=== PATIENT | female | born 1965 | race Caucasian/White ===

== ENCOUNTER 2019-05-07 06:33 | Emergency (ER) | payer BC ==
[2019-05-07] MEDS ORDERED: Ondansetron PF 4 MG/2 ML Vial ONE (06:57)
[2019-05-07] MEDS ORDERED: Ketorolac Tromethamine 30 MG/ML VIAL ONE ×2 (06:58→07:37)
[2019-05-07 07:07] LABS: Bilirubin Negative (Negative); Blood, Urine Large (Negative); Clarity Cloudy (Clear); Glucose, Urine (Dipstick) Negative (Negative); Leukocyte Large (Negative); Nitrite Negative (Negative); Protein, Urine (Dipstick) Trace mg/dL (Neg-Trace); Urobilinogen 0.2 mg/dL (Less than 2)
[2019-05-07 07:09] LABS: Bacteria/HPF Rare-Few HPF (None Seen); Squamous Epithelial 0-3 HPF (0-3); WBC/HPF 21-50 HPF (0-3)
[2019-05-07 07:21] LABS: ALT (SGPT) 33 U/L (8-55); AST (SGOT) 22 U/L (5-34); Albumin 4.1 g/dL (3.5-5.0); Alkaline Phosphatase 119 U/L (40-110); Anion Gap 15 mmol/L (10-20); BUN (Urea Nitrogen) 14 mg/dL (9.8-20.1); Bilirubin, Total 0.3 mg/dL (0.2-1.2); Calc. Creatinine Clearance 0 mL/min (70-130); Calcium 9.2 mg/dL (7.8-10.44); Carbon Dioxide 23 mmol/L (22-29); Chloride 107 mmol/L (98-107); Estimated GFR-MDRD 79; Globulin 2.8 g/dL (2.4-3.5); Glucose 104 mg/dL (70-105); Lipase 20 U/L (8-78); Potassium 4.2 mmol/L (3.5-5.1); Protein, Total 6.9 g/dL (6.0-8.3); Sodium 141 mmol/L (136-145)
[2019-05-07 07:23] LABS: #Basophils 0.1 thou/uL (0.0-0.2); #Eosinphils 0.3 thou/uL (0.0-0.7); #Lymphocytes 2.3 thou/uL (1.20-3.40); #Monocytes 0.6 thou/uL (0.11-0.59); %Basophils 0.8 % (0.0-1.0); %Eosinophils 3.9 % (0.0-10.0); %Lymphocytes 31.4 % (21.0-51.0); %Monocytes 8.3 % (0.0-10.0); %Neutrophils 55.6 % (42.0-75.0); Hemoglobin 14.9 g/dL (12.0-16.0); Mean Corpuscular HGB CONC 33.2 g/dL (32.0-36.0); Mean Corpuscular Hemoglobin 28.8 pg (27.0-31.0); Mean Corpuscular Volume 86.7 fL (78.0-98.0); Mean Platelet Volume 7.2 fL (7.4-10.4); Platelet Count 271 thou/uL (130-400); RBC Distribution Width 12.4 % (11.5-14.5); Red Blood Cell (RBC) Count 5.18 mill/uL (4.20-5.40); White Blood Cell (WBC) Count 7.2 thou/uL (4.8-10.8)
[2019-05-07] MEDS ORDERED: cefTRIAXone\\ROCEPHIN 1 GM VIAL ONE (08:24)
[2019-05-07] MEDS ORDERED: Sodium Chloride 0.9% 100 ML ONE (08:25)
--- NOTE | 2019-05-07 08:36 | CT ---
ABDOMEN CT WITHOUT CONTRAST PELVIC CT WITHOUT CONTRAST: HISTORY: Right flank pain. COMPARISON: 07/09/2010. FINDINGS: ABDOMEN CT: Dependent atelectatic changes of the lung bases. Normal heart size. No significant pericardial flui d. CT evidence of cholelithiasis, without evidence of cholecystitis. 0.7 cm gallstone. Limited evaluation of the solid organs by lack of IV contrast. Grossly, no solid organ abnormality. No gastrohepatic, retrocrural, or periportal lymphadenopathy. Limited evaluation of the alimentary canal by the lack of oral contrast. No evidence of bowel obstru ction. Ileocecal junction is unremarkable. Normal-caliber appendix emanates from the cecal apex. S cattered fecal material in a nondistended, nondilated colon. There are bilateral nonobstructing intrarenal calculi. These calculi vary in size from 1-2 mm to as large as 8 mm. Bilaterally, no hydronephrosis or perinephric fat stranding. Bilateral ureters have a normal caliber. No hydroureter, periureteral fat stranding, or ureterolithiasis. There is evidenc e of multifocal hypodensities in the left renal cortex. The largest hypodensity emanates from the lo wer pole and has an attenuation coefficient of -1.4 Hounsfield units, compatible with a 1.8 cm cyst. There is no mesenteric mass, free air, or free fluid. There are mildly enlarged right lower quadrant mesenteric lymph nodes. Check Processing Clerk lymph node measures 1.[address] PELVIS: Uterus is surgically absent. No pelvic mass, lymphadenopathy, free air, or free fluid. Decompressed urinary bladder limits evaluation. No evidence of bladder calculi. There are no lytic or blastic lesions in the osseous structures. IMPRESSION: 1. Bilateral nonobstructing renal calculi. 2. Multiple hypodense lesions in the left kidney. The largest lesion is compatible with a cyst. 3. Bilaterally, no evidence of obstructive uropathy. 4. Cholelithiasis without evidence of cholecystitis. 5. Enlarged mesenteric lymph nodes in the right lower quadrant. Correlate for mesenteric lymphadeni tis. POS: [facility]
[2019-05-07] MEDS ORDERED: Phenazopyridine HCl 97.5 MG TABLET ONE (08:43)
== END 2019-05-07 09:10 | disposition home or self-care (01) ==
LOC: SCSER 06:33
DX: N39.0 Urinary tract infection, site not specified (principal)
CPT/HCPCS: 74176; 80053; 81003; 81015; 83690; 85025; 87077; 87086; 87186; 96361; 96365; 96375; 96376; J0696; J1885; J2405; J3490

== ENCOUNTER 2019-05-13 07:59 | Emergency (ER) | payer BC ==
[2019-05-13 08:21] LABS: Bilirubin Negative (Negative); Blood, Urine Moderate (Negative); Clarity Hazy (Clear); Glucose, Urine (Dipstick) Negative (Negative); Leukocyte Trace (Negative); Nitrite Positive (Negative); Protein, Urine (Dipstick) Negative (Neg-Trace); Urobilinogen 0.2 mg/dL (Less than 2)
[2019-05-13 08:23] LABS: WBC/HPF 0-3 HPF (0-3)
[2019-05-13 08:24] LABS: Bacteria/HPF 1+ HPF (None Seen)
[2019-05-13] MEDS ORDERED: Ondansetron PF 4 MG/2 ML Vial ONE (08:38)
--- NOTE | 2019-05-13 10:16 | ULT ---
ULTRASOUND ABDOMEN COMPLETE: DATE: 05/13/2019 HISTORY: 53 year old female with known calculus of kidney (nephrolithiasis). Rule out obstructive uropathy. FINDINGS: Liver:Echogenicity and size normal. In the right lobe, there is an approximately 1.5 x 1.5 x 1.5 cm n onshadowing moderately hyperechoic focal mass. Gallbladder:0.7 cm calculus in the lumen. Normal mural thickness. No pericholecystic fluid. Common duct:3 mm Spleen:No splenomegaly. Pancreas:Nonspecific sonographic appearance of body. Head poorly visualized. Tail completely obscured by shadowing from bowel gas. Kidneys:No hydronephrosis. Multiple small hyperechoic foci several millimeters in size each. At left lower pole, there is a 1.5 x 1.5 x 1.5 cm cyst. Abdominal aorta:Not visualized Inferior vena cava:Not visualized IMPRESSION: 1) bilateral nephrolithiasis (ICD-10 terminology: Calculus of kidney). 2) no hydronephrosis. 3) 1.5 cm left renal cyst. 4) 1.5 cm solid hyperechoic mass in right lobe of liver. Uncertain whether hemangioma or malignant ne oplasm. Recommend further evaluation with multiphase liver mass protocol CT or MRI of abdomen with and without contrast. 5) cholelithiasis without evidence of acute cholecystitis.
== END 2019-05-13 11:22 | disposition home or self-care (01) ==
LOC: SCSER 07:59
DX: N20.0 Calculus of kidney (principal); E03.9 Hypothyroidism, unspecified; R11.0 Nausea; Z79.899 Other long term (current) drug therapy
CPT/HCPCS: 76700; 81003; 81015; 87086; 96361; 96374; 96375; J2270; J2405